=== PATIENT | male | born 1975 ===

== ENCOUNTER 2023-06-30 14:41 | Outpatient (AMB) | payer OTHER, SELFPAY ==
[2023-06-30 14:53] VITALS: BP 138/72; PULSE 98; TEMP 36.9; O2SAT 98; BMI 31.2
--- NOTE | 2023-06-30 14:58 | MHC.OFFWIV ---
Intake Vital Signs 06/30/23 14:53 Height 5 ft 8 in Weight 205 lb 4 oz BMI 31.2 BP 138/72 Blood Pressure Location Lt brachial Position Sitting Pulse 98 Pulse Source Pulse Oximeter Temp 98.4 F Temp Source Oral Pulse Oximetry (%) 98 Oxygen Delivery Method Room Air Intake Visit Reasons: Lump on Back Intake Note: Patient is here with cyst in upper back/ neck, has gotten worse in the last two days. Patient Tobacco Use Status: Current everyday Tobacco user Allergies No Known Allergies Allergy (Verified 06/30/23 15:12) Medication List - Last Reconciled 06/30/23 by Martha Peña, JEWELRY DESIGNER- methadone 190 mg PO DAILY Do you need a note to return to daycare/school/sports/work: No HPI HPI Comments History of Present Illness Details 47-year-old male here today with complaints of an abscess on his right upper back. Reports that he noticed what looked like an ingrown hair a pimple in this area on Wednesday. Since onset the area has become larger and tender to touch. He started using an iije-urt-rhithxy herbal topical treatment and tree oil. Unfortunately this did not work. He reports that he is up-to-date on his Tdap. He denies any fever or chills or systemic symptoms associated with this area PFSH Social History Patient Tobacco Use Status: Current everyday Tobacco user Review of Systems Const All systems reviewed & are unremarkable except as noted in HPI and below Physical Exam Vital Signs: Last Vital Signs Temp 98.4 F 06/30/23 14:53 Pulse 98 06/30/23 14:53 BP 138/72 06/30/23 14:53 Pulse Ox 98 06/30/23 14:53 Oxygen Delivery Method Room Air 06/30/23 14:53 BMI result Body Mass Index 31.2 Const Other: Right upper back is a soft tissue abscess about the size of a golf ball, skin is warm to touch, the abscesses fluctuant, in the center is an open area. Given the erythema and warmth there was no attempt to express any of the discharge from this area. Assessment & Plan Assessment & Plan (1) Soft tissue abscess: Code(s): L02.91 - Cutaneous abscess, unspecified Plan: . Medications: New amoxicillin-pot clavulanate 500-125 mg 1 tab PO BID 7 days 14 tabs 0RF sulfamethoxazole-trimethoprim 800-160 mg (Bactrim DS) 1 tab PO BID 7 days 14 tabs 0RF Patient Instructions: Take antibiotics as directed. Take with food to avoid GI upset. Apply warm moist compresses as often as possible. Do not continue to use the topical herbal treatment. Please return to the office on Wednesday to evaluate the need for an incision and drainage. Even if the area has improved I do recommend that you come back for a follow-up just so that we can look at this area again in ensure resolution. Total time spent caring for the patient today was 30 minutes. This includes time spent before the visit reviewing the chart, time spent during the visit, and time spent after the visit on documentation This note is constructed using voice recognition software. While every effort has been made to ensure accuracy in bullet charging machine operator, still errors may have been included Sometimes, these errors may affect the content or meaning of the given sentence . Coding Level of Care Code New Pt Level 3 (71490) Diagnoses Soft tissue abscess L02.91
== END 2023-06-30 15:44 | disposition home or self-care (01) ==
PROVIDERS: Visit Provider Nurse Practitioner Family
DX: L02.91 Cutaneous abscess, unspecified (principal)
CPT/HCPCS: 99203

== ENCOUNTER 2023-07-05 08:07 | Outpatient (AMB) | payer OTHER, SELFPAY ==
--- NOTE | 2023-07-05 08:18 | AM.OFFWIN_ITS ---
Intake Vital Signs 07/05/23 08:21 Height 5 ft 8 in Weight 203 lb BMI 30.9 BP 132/78 Blood Pressure Location Lt brachial Position Sitting Pulse 100 Pulse Oximetry (%) 99 Oxygen Delivery Method Room Air Intake Visit Reasons: cyst on back Intake Note: Patient is here today with cyst on his upper back, has been nauseous with antibiotics, patient states it drained after taking the antibiotics. Patient Tobacco Use Status: Current everyday Tobacco user Allergies No Known Allergies Allergy (Verified 07/05/23 08:20) Do you need a note to return to daycare/school/sports/work: No HPI cyst on back HPI Details Pt presents today with complaints of a cyst on his upper back. Pt reports it drained after taking antibiotics. PFSH Social History Patient Tobacco Use Status: Current everyday Tobacco user Review of Systems Const Denies chills, Denies fatigue, Denies fever(s), Denies headache(s) and Denies weakness ENT Denies dizziness and Denies headache(s) Card Denies dyspnea Resp Denies cough, Denies dyspnea, Denies wheezing and Denies other (shortness of breath) Musc Denies numbness and Denies tingling Neuro Denies dizziness, Denies headache(s), Denies numbness, Denies tingling and Denies weakness Psych Denies anxiety and Denies depression Endo Denies fatigue Aller/Immun Denies wheezing Physical Exam Vital Signs: Last Vital Signs Pulse 100 07/05/23 08:21 BP 132/78 07/05/23 08:21 Pulse Ox 99 07/05/23 08:21 Oxygen Delivery Method Room Air 07/05/23 08:21 BMI result Body Mass Index 30.9 Const General: well developed; No acute distress Nutritional Appearance: well nourished Orientation/consciousness: patient oriented x3 HEENT Head: Yes normocephalic and Yes atraumatic Eyes General: appearance normal, both eyes and all related structures Pupils: Equal, round and reactive pupils present EOM: EOMs intact bilaterally Resp Effort & Inspection: normal respiratory effort Neuro General: patient oriented x3 and gait normal Cranial nerves: Yes Equal, round and reactive pupils present Psych Affect: normal affect Assessment & Plan Assessment & Plan (1) Cyst of skin: Code(s): L72.9 - Follicular cyst of the skin and subcutaneous tissue, unspecified Plan: Wound?at?back?was?prepped?and?draped?in?the?usual?fashion?with?Betadine Used?2?cc?of?lidocaine?for?anesthesia?and?patient?tolerated?this?well. After?achieving?anesthesia,?I?used?a?#11?Blade?scalpel to?make?a?stab?incision?and?expressed?approximately?4?cc?of?pus Wound?was?irrigated?with?3?cc?saline Wound?was?packed?with sterile?gauze?wick And?dressed?with?Telfa?pad?and?tape. He?will?remove?dressing?and?wick?which?will?be?replaced?each?day?for?the?next?4- 5?days. After?which?he?can?apply?dressing?alone I?will?continue?his?antibiotic?for?another?8?days?beyond?the?end?of?his?current? script (ten?days?more). Call?or?return?to?office?if?not?improving?or?worsens. Medications: Changed From amoxicillin-pot clavulanate 500-125 mg 1 tab PO BID 7 days 14 tabs 0RF To amoxicillin-pot clavulanate 500-125 mg 1 tab PO BID 16 tabs 0RF 8 days Coding Level of Care Code Est Pt Level 3 (88649) Diagnoses Cyst of skin L72.9
[2023-07-05 08:21] VITALS: BP 132/78; PULSE 100; O2SAT 99; BMI 30.9
== END 2023-07-05 09:51 | disposition home or self-care (01) ==
PROVIDERS: Visit Provider Family Medicine
DX: L72.9 Follicular cyst of the skin and subcutaneous tissue, unspecified (principal)
CPT/HCPCS: 99213

== ENCOUNTER 2024-09-11 08:20 | Outpatient (AMB) | payer OTHER, SELFPAY ==
--- NOTE | 2024-09-11 08:21 | AM.OFFWIN_ITS ---
Intake Vital Signs 09/11/24 08:22 Weight 213 lb BP 120/80 Blood Pressure Location Rt brachial Position Sitting Pulse 87 Pulse Source Pulse Oximeter Temp 98.1 F Temp Source Oral Pulse Oximetry (%) 99 Oxygen Delivery Method Room Air Intake Visit Reasons: EP RT ear pain Intake Note: Patient here for right ear pain that has been present for about 1 day. Patient Tobacco Use Status: Current everyday Tobacco user Allergies No Known Allergies Allergy (Verified 09/11/24 08:22) Do you need a note to return to daycare/school/sports/work: No HPI HPI Comments History of Present Illness Details History - The patient is a 49-year-old male pres enting with discomfort in the right ear starting the day before the visit, described as muffled but with no change in hearing confirmed. - No presence of fever, prior ear infect ions, sinus issues, headaches, or congestion. - History of ear cleaning with wax kits months ago, though the right ear currently lacks visible wax and inflammation. - Also c/o right eastman area has dry skin present for several weeks, occasionally itchy, treated with triple antibiotic ointment, with no improvement, it is itchy at times. Physical Exam General: Cooperative, healthy appearing, comfortable and no acute distress Orientation/consciousness: Patient oriented x3 Limitations: No limitations Head: Normal to inspection Ears: Hearing grossly normal bilaterally. Left EAC with cerumen, right eac normal, right TM normal. Nose: Normal external nose present, Normal nares present and No nasal discharge present Face and sinus: Normal facial exam and Yes sinuses nontender Mouth: Normal oral and palatal mucosa present and moist mucous membranes Throat: Yes tonsils normal, Yes uvula midline. Posterior oropharynx erythema with cobblestoning, Eyes: Appearance normal, both eyes and all related structures Neck: Normal visual inspection Respiratory: Normal respiratory effort, able to speak in complete sentences, no respiratory distress, not tachypneic, no tripod positioning and no use of accessory muscles Skin: right LE anterior eastman with 6-7 small erythematous areas that are scabbed over with dried skin surrounding, no warmth. Neuro: Patient oriented x3 Extremities: Normal to inspection and Yes no clubbing, cyanosis or edema PFSH Social History Patient Tobacco Use Status: Current everyday Tobacco user Review of Systems Const All systems reviewed & are unremarkable except as noted in HPI and below Physical Exam Vital Signs: Last Vital Signs Temp 98.1 F 09/11/24 08:22 Pulse 87 09/11/24 08:22 BP 120/80 09/11/24 08:22 Pulse Ox 99 09/11/24 08:22 Oxygen Delivery Method Room Air 09/11/24 08:22 Office Procedures Cerumen Removal From which ear canal was the cerumen removed: left Removal: irrigation and otoscope w/curette Notes: patient tolerated procedure well, no complications and ear canal clear [id number] Irrigation/Lavage Assessment & Plan Assessment & Plan (1) Impacted cerumen, left ear: Code(s): H61.22 - Impacted cerumen, left ear Plan: Conduct ear irrigation for the left ear where wax build-up is significant, despite it not being directly associated with the right ear's discomfort. Patient was informed and verbally consented to the use of an ambient scribe for clinic note documentation during this visit (2) Seasonal allergies: Code(s): J30.2 - Other seasonal allergic rhinitis Plan: Initiate treatment with an allergy medication due to evidence suggesting allergic involvement with the discomfort in the right ear, as indicated by throat cobblestoning and potential minor congestion. (3) Eczema: Code(s): L30.9 - Dermatitis, unspecified Qualifiers: Eczema type: unspecified Qualified Code(s): L30.9 - Dermatitis, unspecified Plan: For the patient's dry skin, transition to a 1% hydrocortisone cream to address the possibility of eczema, which should provide better symptomatic relief than the current antibiotic ointment. The treatment plan is aimed at resolving symptoms effectively by targeting the probable allergic reactions and skin inflammation. (4) Otitis externa, left: Code(s): H60.92 - Unspecified otitis externa, left ear Qualifiers: Otitis externa type: other infective Chronicity: acute Qualified Code(s): H60.392 - Other infective otitis externa, left ear Plan: Once cerumen was cleared, EAC with erythema, purulence and edema, will treat with drops, sent to pharmacy. Orders: Orders AMB Cerumen Removal Today H61.22 - Impacted cerumen, left ear Medications: New [id number]-[id number] 3.5-10,000-1 mg/mL-unit/mL-% 4 drps otic (ear) left Q8H 10 mL 0RF 7 days Coding Level of Care Code New Pt Level 4 (29561) Diagnoses Impacted cerumen, left ear H61.22 Seasonal allergies J30.2 Eczema, unspecified type L30.9 Eczema type: unspecified Other infective acute otitis externa of left ear H60.392 Otitis externa type: other infective Chronicity: acute CPT Codes Office Procedure - CPT: 50790-Pnz Irrigation/Lavage ([id number])
[2024-09-11 08:22] VITALS: BP 120/80; PULSE 87; TEMP 36.7; O2SAT 99
== END 2024-09-11 09:09 | disposition home or self-care (01) ==
PROVIDERS: Visit Provider Physician Assistant
DX: J30.2 Other seasonal allergic rhinitis (principal); H61.22 Impacted cerumen, left ear; L30.9 Dermatitis, unspecified; H60.392 Other infective otitis externa, left ear

== ENCOUNTER → 2024-09-11 08:20 | Outpatient (BNVA) | payer OTHER, SELFPAY | PROVIDERS: Visit Provider Physician Assistant | DX: H61.22 Impacted cerumen, left ear (principal); J30.2 Other seasonal allergic rhinitis; L30.9 Dermatitis, unspecified; H60.392 Other infective otitis externa, left ear | CPT/HCPCS: 69210; 99202 ==